=== PATIENT | female | born 1995 | race Two or more races ===

== ENCOUNTER 2018-06-20 13:24 | Emergency (ER) | payer MEDICAID ==
[~2018-06-20] VITALS: Ht 162.6 cm; Wt 65.3 kg
[2018-06-20 13:45] VITALS: BP 117/77
[2018-06-20 17:00] LABS: Urine Bacteria NONE SEEN /hpf (None Seen); Urine Blood Negative /uL (Negative); Urine Specific Gravity 1.032 (1.001-1.035); Urine WBC 1 /hpf (0 - 5)
== END 2018-06-20 17:36 | disposition home or self-care (01) ==
LOC: ER 13:28
DX: E10.65 Type 1 diabetes mellitus with hyperglycemia (principal); R81 Glycosuria; Z88.8 Allergy status to other drugs, medicaments and biological substances
CPT/HCPCS: 81001; 81025; 82962

== ENCOUNTER 2021-03-27 01:51 | Inpatient (IN) | payer MEDICAID ==
[~2021-03-27] VITALS: Ht 162.6 cm; Wt 59.8 kg
[2021-03-27] MEDS ORDERED: ONDANSETRON HCL 4 MG/2 ML VIAL ONE (02:12)
[2021-03-27] MEDS ORDERED: SODIUM CHLORIDE 0.9% 1,000 ML IV ONE ×3 (02:15→03:45)
[2021-03-27] MEDS ORDERED: ONDANSETRON HCL 4 MG/2 ML VIAL IV ONE (02:30)
[2021-03-27 02:39] LABS: Albumin 3.8 g/dL (3.4-5.0); Calcium 9.5 mg/dL (8.5-10.1); Potassium 5.1 mmol/L (3.5-5.1)
[2021-03-27] MEDS ORDERED: SODIUM BICARBONATE 8.4% INJ 50ML SYRINGE ONE (02:42)
[2021-03-27] MEDS ORDERED: SODIUM BICARBONATE 8.4 % INJ 50ML VIAL IV ONE (02:45)
[2021-03-27 02:47] LABS: Lactic Acid w/Reflex 3.4 mmol/L (0.4-2.0)
[2021-03-27 02:55] LABS: Bilirubin, Total 0.7 mg/dL (0.2-1.0); Total Protein 7.7 g/dL (6.4-8.2)
[2021-03-27] MEDS ORDERED: ACETAMINOPHEN 325 MG TAB PO ONE (03:00)
[2021-03-27 03:04] LABS: Basophils # (auto) 0 10 ^3/uL (0-0.2); Basophils % (auto) 0.3 % (0.0-2.0); Eosinophils # (auto) 0 10 ^3/uL (0-0.8); Hematocrit 40.4 % (36.0-46.0); Hemoglobin 13.3 g/dL (12.2-16.2); Lymphocytes % (auto) 6.3 % (10.0-50.0); Mean Corpuscular Hemoglobin 28.5 pg (28.0-32.0); Mean Corpuscular Hgb Conc. 32.9 g/dL (32.0-36.0); Mean Corpuscular Volume 86.5 fL (80.0-100.0); Monocytes # (auto) 0.6 10 ^3/uL (0-1.3); Monocytes % (auto) 4.3 % (0.0-12.0); Neutrophils # (auto) 13.3 10 ^3/uL (1.6-8.6); Neutrophils % (auto) 89.1 % (37.0-80.0); Nucleated Red Blood Cells % 0.1 %; Red Blood Cells 4.67 10^6/uL (4.0-5.20); Red Cell Distribution Width 13.6 % (11.8-14.3)
[2021-03-27 03:36] LABS: Urine Bacteria FEW /hpf (None Seen); Urine Blood Negative /uL (Negative); Urine WBC 5 /hpf (0 - 5)
[2021-03-27] MEDS ORDERED: DEXTROSE (50%) 50ML SYRG IV PRN ×3 (03:45→14:45)
[2021-03-27] MEDS ORDERED: InsuLIN R (HUMAN) 100 UNITS in SODIUM CHL 0.9% 99 ML IV SCH (03:45)
[2021-03-27] MEDS ORDERED: InsuLIN REG 1unit/0.01ml Soln (100units/ml) ONE (03:51)
[2021-03-27] MEDS ORDERED: cefTRIAXone 1GM/50ML D5W 50 ML IV ONE (04:00)
[2021-03-27] MEDS ORDERED: MORPHINE SULFATE 4 MG/ML SYR/VIAL IV PRN (04:30)
[2021-03-27] MEDS ORDERED: MORPHINE SULFATE INJECTION 2 MG/ML SYRG IV PRN (04:30)
[2021-03-27] MEDS ORDERED: NITROGLYCERIN 0.4 MG SL TAB SL PRN (04:30)
[2021-03-27] MEDS ORDERED: ACCU-CHEK COMFORT CURVE STRIP VI SCH (04:30)
[2021-03-27] MEDS: ACCU-CHEK COMFORT CURVE STRIP VI SCH ×7 (04:50→19:57)
[2021-03-27] MEDS: MAGNESIUM SULFATE 1GM/100ML 100 ML IV SCH ×2 (05:00→05:48)
[2021-03-27] MEDS: SODIUM CHLORIDE 0.9% 1,000 ML IV SCH ×3 (05:19→18:18)
[2021-03-27 06:58] LABS: Calcium 8.4 mg/dL (8.5-10.1)
[2021-03-27 07:00] LABS: BUN/Creatinine Ratio 14.7
[2021-03-27 10:20] LABS: Alcohol, Urine < 3.0 mg/dL (0-10); Amphetamine Screen, Urine NEGATIVE (NEGATIVE); Barbiturate Scree,Urine NEGATIVE (NEGATIVE); Benzodiazephine Screen, Urine NEGATIVE (NEGATIVE); Cannabinoid Screen, Urine NEGATIVE (NEGATIVE); Cocaine Screen, Urine NEGATIVE (NEGATIVE); Opiate Scree,Urine NEGATIVE (NEGATIVE); Phencyclidine Screen, Urine NEGATIVE (NEGATIVE)
[2021-03-27 10:43] LABS: BUN/Creatinine Ratio 15.9; Calcium 8.4 mg/dL (8.5-10.1); Potassium 4.2 mmol/L (3.5-5.1)
[2021-03-27] MEDS ORDERED: INSLISPI SC (12:38)
[2021-03-27] MEDS: ONDANSETRON HCL 4 MG/2 ML VIAL IV PRN ×2 (14:06→18:20)
[2021-03-27] MEDS: InsuLIN REG 1unit/0.01ml Soln (100units/ml) SC SCH ×2 (15:28→19:57)
[2021-03-27] MEDS ORDERED: InsuLIN REG 1unit/0.01ml Soln (100units/ml) SC SCH (16:00)
[2021-03-27 17:00] VITALS: BP 108/63
[2021-03-27 18:20] VITALS: BP 108/63
[2021-03-27 19:07] LABS: BUN/Creatinine Ratio 13.8; Calcium 8.5 mg/dL (8.5-10.1); Potassium 4.3 mmol/L (3.5-5.1)
[2021-03-27 21:42] VITALS: BP 108/55
[2021-03-27 22:22] LABS: Calcium 8.6 mg/dL (8.5-10.1); Potassium 3.7 mmol/L (3.5-5.1)
[2021-03-27 22:24] LABS: BUN/Creatinine Ratio 13.4
[2021-03-28] MEDS: SODIUM CHLORIDE 0.9% 1,000 ML IV SCH ×3 (00:01→12:00)
[2021-03-28 02:19] LABS: BUN/Creatinine Ratio 12.9; Calcium 8.4 mg/dL (8.5-10.1); Potassium 3.9 mmol/L (3.5-5.1)
[2021-03-28] MEDS: ACCU-CHEK COMFORT CURVE STRIP VI SCH ×5 (04:12→16:00)
[2021-03-28] MEDS: InsuLIN REG 1unit/0.01ml Soln (100units/ml) SC SCH ×5 (04:13→16:00)
[2021-03-28 04:57] VITALS: BP 94/51
[2021-03-28 05:46] LABS: Basophils # (auto) 0.1 10 ^3/uL (0-0.2); Basophils % (auto) 0.5 % (0.0-2.0); Eosinophils # (auto) 0 10 ^3/uL (0-0.8); Eosinophils % (auto) 0.2 % (0.0-7.0); Hematocrit 34.2 % (36.0-46.0); Hemoglobin 11.2 g/dL (12.2-16.2); Lymphocytes # (auto) 2.5 10 ^3/uL (0.4-5.4); Lymphocytes % (auto) 20.7 % (10.0-50.0); Mean Corpuscular Hemoglobin 28.1 pg (28.0-32.0); Mean Corpuscular Hgb Conc. 32.8 g/dL (32.0-36.0); Mean Corpuscular Volume 85.6 fL (80.0-100.0); Monocytes # (auto) 0.6 10 ^3/uL (0-1.3); Neutrophils # (auto) 8.8 10 ^3/uL (1.6-8.6); Neutrophils % (auto) 73.6 % (37.0-80.0); Red Blood Cells 3.99 10^6/uL (4.0-5.20); Red Cell Distribution Width 13.6 % (11.8-14.3)
[2021-03-28 06:03] LABS: Potassium 3.8 mmol/L (3.5-5.1)
[2021-03-28 06:06] LABS: BUN/Creatinine Ratio 12.5
[2021-03-28 08:47] VITALS: BP 109/65
[2021-03-28] MEDS ORDERED: INSULIN LANTUS (GLARGINE) 1 /0.01ml (100units/ml) SC SCH ×2 (10:00)
[2021-03-28 13:00] VITALS: BP 106/64
[2021-03-28] MEDS ORDERED: INSU1INJ19 SC (14:03)
[2021-03-28] MEDS ORDERED: INSU100I4 SC (14:03)
[2021-03-28 15:30] VITALS: BP 106/64
== END 2021-03-28 16:00 | disposition home or self-care (01) | DRG 420 ==
LOC: EDBD 01:51 → ER 01:54 → TELE 04:24 → TELE-WESTW 17:14
PROVIDERS: ADMIT Hospitalist; ATTEND Hospitalist
DX: E10.10 Type 1 diabetes mellitus with ketoacidosis without coma (principal); Z20.822 Contact with and (suspected) exposure to COVID-19; Z96.41 Presence of insulin pump (external) (internal); Z88.8 Allergy status to other drugs, medicaments and biological substances
CPT/HCPCS: 36415; 36600; 71045; 74176; 80048; 80053; 80307; 81001; 82010; 82805; 82962; 83605; 83735; 84702; 85025; 87040; 87426; 93005; 96361; 96365; 96375; 99291; G0378; J0696; J1815; J2405

== ENCOUNTER 2023-04-29 21:45 | Inpatient (IN) | payer MEDICAID, OTHER ==
[~2023-04-29] VITALS: Ht 162.6 cm; Wt 35.0 kg
[~2023-04-29 21:45] MED LIST: INSU100I4 SC; INSU1INJ19 SC
[2023-04-29] MEDS ORDERED: ONDANSETRON HCL 4 MG/2 ML VIAL IV ONE (22:30)
[2023-04-29] MEDS ORDERED: MORPHINE SULFATE 4 MG/ML SYR/VIAL IV ONE (22:30)
[2023-04-29] MEDS ORDERED: SODIUM CHLORIDE 0.9% 1,000 ML IVB ONE (22:30)
[2023-04-29 22:56] LABS: Basophils # (auto) 0 10 ^3/uL (0-0.2); Basophils % (auto) 0.2 % (0.0-2.0); Eosinophils # (auto) 0 10 ^3/uL (0-0.8); Eosinophils % (auto) 0.1 % (0.0-7.0); Hematocrit 41.8 % (36.0-46.0); Hemoglobin 14.1 g/dL (12.2-16.2); Lymphocytes # (auto) 0.3 10 ^3/uL (0.4-5.4); Lymphocytes % (auto) 2.6 % (10.0-50.0); Mean Corpuscular Hemoglobin 27.4 pg (28.0-32.0); Mean Corpuscular Hgb Conc. 33.6 g/dL (32.0-36.0); Mean Corpuscular Volume 81.3 fL (80.0-100.0); Monocytes # (auto) 0.3 10 ^3/uL (0-1.3); Monocytes % (auto) 2.3 % (0.0-12.0); Neutrophils % (auto) 94.8 % (37.0-80.0); Red Blood Cells 5.14 10^6/uL (4.0-5.20); Red Cell Distribution Width 13.3 % (11.8-14.3); White Blood Cell 12.7 10^3/uL (4.4-10.8)
[2023-04-29 23:12] LABS: Alanine Aminotransferase 26 U/L (7-40); Alkaline Phosphatase 55 U/L (46-116); Anion Gap 10 (5-15); Aspartate Aminotransferase 28 U/L (13-40); BUN/Creatinine Ratio 7.2 (10.0-20.0); Bilirubin, Total 0.8 mg/dL (0.2-1.0); Blood Urea Nitrogen 6 mg/dL (9-23); Calcium 8.7 mg/dL (8.5-10.1); Carbon Dioxide 20 mmol/L (20-30); Chloride 107 mmol/L (98-107); Glucose 212 mg/dL (74-106); INR 0.96 (0.9-1.15); Partial Thromboplastin Time 24.2 SEC (24.5-34.5); Potassium 3.4 mmol/L (3.5-5.1); Prothrombin Time 10.1 sec (9.3-11.8); Sodium 137 mmol/L (136-145); Total Protein 6.5 g/dL (5.7-8.2)
[2023-04-29 23:26] LABS: Lipase 26 U/L (12-53); Magnesium 1.6 mg/dL (1.6-2.6)
[2023-04-30] MEDS ORDERED: MORPHINE SULFATE 4 MG/ML SYR/VIAL ONE (01:18)
[2023-04-30] MEDS ORDERED: ONDANSETRON HCL 4 MG/2 ML VIAL ONE ×2 (01:18→15:22)
[2023-04-30] MEDS ORDERED: ACETAMINOPHEN 500 MG TAB PO ONE ×3 (01:25→01:35)
[2023-04-30] MEDS ORDERED: PIPERACILLIN-TAZOB 3.375GM 100 ML IV ONE ×2 (01:25→01:30)
[2023-04-30] MEDS ORDERED: SODIUM CHLORIDE 0.9% 1,000 ML IV ONE (01:45)
[2023-04-30 04:50] VITALS: PULSE 94; RESP 18; O2SAT 97
[2023-04-30] MEDS ORDERED: LACTATED RINGER'S 1,000 ML IV ONE ×2 (05:00→07:00)
[2023-04-30] MEDS ORDERED: fentaNYL CITRATE 100 MCG/2 ML VL ONE (05:02)
[2023-04-30] MEDS ORDERED: ONDANSETRON HCL 4 MG/2 ML VIAL IV ONE (05:15)
[2023-04-30] MEDS ORDERED: fentaNYL CITRATE 100 MCG/2 ML VL IV ONE (05:15)
[2023-04-30 05:19] LABS: Urine Bacteria FEW /hpf (None Seen); Urine Blood 1+ /uL (Negative); Urine Clarity Clear (Clear); Urine Protein, UAD Negative (Negative); Urine Urobilinogen Normal (Negative); Urine WBC 4 /hpf (0 - 5); Urine pH 5.5 (5.0-8.0)
[2023-04-30 05:21] LABS: Urine Color Straw (Yellow)
[2023-04-30] MEDS ORDERED: METOCLOPRAMIDE HCL 5MG/ml INJ 2ml VIAL IV PRN (07:00)
[2023-04-30] MEDS ORDERED: PANTOPRAZOLE 40 MG/10 ML VIAL INJ IV ONE ×2 (07:00→08:10)
[2023-04-30] MEDS ORDERED: ONDANSETRON HCL 4 MG/2 ML VIAL IV PRN (07:00)
[2023-04-30] MEDS ORDERED: HYDROcodone-ACET 5/325MG TAB PO PRN (07:00)
[2023-04-30] MEDS ORDERED: HYDROmorphone HCL 2 MG/ML VL/or syr IV PRN (07:00)
[2023-04-30 07:40] VITALS: PULSE 103; RESP 12; O2SAT 98
[2023-04-30] MEDS ORDERED: metroNIDAZOLE 500MG/100ML 100 ML IV ONE ×3 (08:12→22:06)
[2023-04-30] MEDS: metroNIDAZOLE 500MG/100ML 100 ML IV SCH ×3 (08:13→22:09)
[2023-04-30 10:49] LABS: Base Excess -1.9 mmol/L (-2.0-2.0)
[2023-04-30] MEDS ORDERED: ENOXAPARIN SOD 40 MG/0.4 ML SYRINGE SC ONE (11:16)
[2023-04-30] MEDS ORDERED: cefTRIAXone 1GM/50ML D5W 50 ML IV ONE (11:16)
[2023-04-30] MEDS: ENOXAPARIN SOD 40 MG/0.4 ML SYRINGE SC SCH (11:19)
[2023-04-30] MEDS: cefTRIAXone 1GM/50ML D5W 50 ML IV SCH (11:20)
[2023-04-30] MEDS: SODIUM CHLOR 0.9% PF (SALINE LOCK) 10ML VIAL/SYR IV SCH ×2 (13:58→22:10)
[2023-04-30] MEDS ORDERED: DEXTROSE (50%) 50ML SYRG IV PRN (14:45)
[2023-04-30] MEDS ORDERED: HYDROcodone-ACET 5/325MG TAB ONE (15:22)
[2023-04-30] MEDS ORDERED: InsuLIN REG 1unit/0.01ml Soln (100units/ml) ONE (16:57)
[2023-04-30] MEDS: ACCU-CHEK COMFORT CURVE STRIP VI SCH ×2 (17:00→22:13)
[2023-04-30] MEDS: InsuLIN REG 1unit/0.01ml Soln (100units/ml) SC SCH ×2 (17:01→22:12)
[2023-04-30 20:00] VITALS: PULSE 74; RESP 16; TEMP 36.7
[2023-04-30 22:00] VITALS: BP 98/63; PULSE 92; RESP 16; TEMP 98.4; O2SAT 99
[2023-05-01] VITALS (7 sets, daily range): BP systolic 94–118; BP diastolic 49–73; PULSE 57–95; RESP 15–20; TEMP 36.7; O2SAT 97–100
[2023-05-01] MEDS: SODIUM CHLOR 0.9% PF (SALINE LOCK) 10ML VIAL/SYR IV SCH ×3 (06:00→22:11)
[2023-05-01] MEDS: metroNIDAZOLE 500MG/100ML 100 ML IV SCH ×3 (06:00→15:07)
[2023-05-01 06:35] LABS: Alanine Aminotransferase 52 U/L (7-40); Albumin 3.1 g/dL (3.2-4.8); Alkaline Phosphatase 53 U/L (46-116); Anion Gap 4 (5-15); Aspartate Aminotransferase 56 U/L (13-40); Basophils # (auto) 0 10 ^3/uL (0-0.2); Basophils % (auto) 0.8 % (0.0-2.0); Bilirubin, Total 0.3 mg/dL (0.2-1.0); Calcium 7.9 mg/dL (8.7-10.4); Carbon Dioxide 25 mmol/L (20-30); Chloride 109 mmol/L (98-107); Eosinophils # (auto) 0.2 10 ^3/uL (0-0.8); Eosinophils % (auto) 4.3 % (0.0-7.0); Glucose 194 mg/dL (74-106); Hematocrit 35.6 % (36.0-46.0); Hemoglobin 11.8 g/dL (12.2-16.2); Lymphocytes # (auto) 1.4 10 ^3/uL (0.4-5.4); Lymphocytes % (auto) 38.1 % (10.0-50.0); Mean Corpuscular Hemoglobin 27.4 pg (28.0-32.0); Mean Corpuscular Hgb Conc. 33.1 g/dL (32.0-36.0); Mean Corpuscular Volume 82.7 fL (80.0-100.0); Monocytes # (auto) 0.4 10 ^3/uL (0-1.3); Monocytes % (auto) 11.7 % (0.0-12.0); Neutrophils # (auto) 1.6 10 ^3/uL (1.6-8.6); Neutrophils % (auto) 45.1 % (37.0-80.0); Nucleated Red Blood Cells % 0.1 %; Potassium 3.8 mmol/L (3.5-5.1); Red Cell Distribution Width 13.6 % (11.8-14.3); Sodium 138 mmol/L (136-145); White Blood Cell 3.7 10^3/uL (4.4-10.8)
[2023-05-01 06:36] LABS: Total Protein 5.1 g/dL (5.7-8.2)
[2023-05-01 06:43] LABS: BUN/Creatinine Ratio 7.2 (10.0-20.0); Blood Urea Nitrogen < 5 mg/dL (9-23)
[2023-05-01] MEDS: InsuLIN REG 1unit/0.01ml Soln (100units/ml) SC SCH ×4 (06:56→22:17)
[2023-05-01] MEDS: ACCU-CHEK COMFORT CURVE STRIP VI SCH ×4 (06:56→22:13)
[2023-05-01] MEDS ORDERED: INSULIN LANTUS (GLARGINE) 1 /0.01ml (100units/ml) SC ONE (08:30)
[2023-05-01] MEDS: cefTRIAXone 1GM/50ML D5W 50 ML IV SCH (09:31)
[2023-05-01] MEDS: ACETAMINOPHEN 325 MG TAB PO PRN ×3 (09:31→11:59)
[2023-05-01] MEDS: ENOXAPARIN SOD 40 MG/0.4 ML SYRINGE SC SCH (09:32)
[2023-05-02 05:00] VITALS: BP 99/64; PULSE 82; RESP 14; TEMP 97.8; O2SAT 100
[2023-05-02] MEDS: SODIUM CHLOR 0.9% PF (SALINE LOCK) 10ML VIAL/SYR IV SCH ×2 (06:32→14:00)
[2023-05-02] MEDS: ACCU-CHEK COMFORT CURVE STRIP VI SCH ×2 (06:32→12:48)
[2023-05-02 06:34] LABS: Alanine Aminotransferase 41 U/L (7-40); Albumin 3.5 g/dL (3.2-4.8); Alkaline Phosphatase 55 U/L (46-116); Anion Gap 7 (5-15); Aspartate Aminotransferase 22 U/L (13-40); BUN/Creatinine Ratio 7.2 (10.0-20.0); Blood Urea Nitrogen 5 mg/dL (9-23); Calcium 8.2 mg/dL (8.7-10.4); Carbon Dioxide 24 mmol/L (20-30); Chloride 104 mmol/L (98-107); Glucose 277 mg/dL (74-106); Magnesium 1.9 mg/dL (1.6-2.6); Sodium 135 mmol/L (136-145)
[2023-05-02 06:35] LABS: Bilirubin, Total 0.3 mg/dL (0.2-1.0); Total Protein 5.8 g/dL (5.7-8.2)
[2023-05-02 06:38] LABS: % Iron Saturation 10.7 % (15-50)
[2023-05-02] MEDS: InsuLIN REG 1unit/0.01ml Soln (100units/ml) SC SCH ×2 (06:38→12:50)
[2023-05-02 06:57] LABS: CRP High Sensitivity 0.92 mg/dL (<1.0)
[2023-05-02] MEDS ORDERED: INSULIN LANTUS (GLARGINE) 1 /0.01ml (100units/ml) SC SCH ×2 (07:00)
[2023-05-02 07:03] LABS: Basophils # (auto) 0 10 ^3/uL (0-0.2); Basophils % (auto) 0.6 % (0.0-2.0); Eosinophils # (auto) 0.1 10 ^3/uL (0-0.8); Eosinophils % (auto) 3.4 % (0.0-7.0); Hemoglobin 12.6 g/dL (12.2-16.2); Lymphocytes # (auto) 1.6 10 ^3/uL (0.4-5.4); Lymphocytes % (auto) 44.6 % (10.0-50.0); Mean Corpuscular Hemoglobin 27.6 pg (28.0-32.0); Mean Corpuscular Hgb Conc. 33.3 g/dL (32.0-36.0); Mean Corpuscular Volume 83.1 fL (80.0-100.0); Monocytes # (auto) 0.4 10 ^3/uL (0-1.3); Monocytes % (auto) 10.3 % (0.0-12.0); Neutrophils # (auto) 1.4 10 ^3/uL (1.6-8.6); Neutrophils % (auto) 41.1 % (37.0-80.0); Nucleated Red Blood Cells % 0.3 %; Red Blood Cells 4.58 10^6/uL (4.0-5.20); Red Cell Distribution Width 13.7 % (11.8-14.3); White Blood Cell 3.5 10^3/uL (4.4-10.8)
[2023-05-02 08:00] VITALS: PULSE 76; RESP 14; RESP 16; TEMP 36.7; O2SAT 99
[2023-05-02 09:00] VITALS: BP 96/68; PULSE 78; RESP 16; TEMP 98.1; O2SAT 100
[2023-05-02] MEDS: ENOXAPARIN SOD 40 MG/0.4 ML SYRINGE SC SCH (10:48)
[2023-05-02] MEDS: cefTRIAXone 1GM/50ML D5W 50 ML IV SCH (10:49)
[2023-05-02] MEDS ORDERED: NITR-52 PO (10:52)
[2023-05-02 11:20] VITALS: TEMP 36.7
== END 2023-05-02 15:42 | disposition home or self-care (01) | DRG 463 ==
LOC: ER 21:45 → EDBD 21:45 → OVERFLOW 04-30 06:58 → WEST WING 04-30 13:35
PROVIDERS: ADMIT Internal Medicine Pulmonary Disease; ATTEND Internal Medicine Pulmonary Disease
DX: N39.0 Urinary tract infection, site not specified (principal); R65.10 Systemic inflammatory response syndrome (SIRS) of non-infectious origin without acute organ dysfunction; N94.6 Dysmenorrhea, unspecified; E10.65 Type 1 diabetes mellitus with hyperglycemia; K59.00 Constipation, unspecified; I88.0 Nonspecific mesenteric lymphadenitis; R74.01 Elevation of levels of liver transaminase levels; Z79.4 Long term (current) use of insulin
CPT/HCPCS: 36415; 36600; 76705; 76856; 80053; 81001; 82805; 82962; 83001; 83036; 83540; 83550; 83605; 83690; 83735; 84402; 84403; 84443; 84484; 84702; 85025; 85610; 85730; 86141; 87040; 87086; 93005; 96361; 96365; 96375; C9113; G0378; J1815; J2405; J2543; J3490